=== PATIENT | male | born 1960 | race Caucasian/White ===

== ENCOUNTER 2022-07-17 21:13 | Emergency (ER) | payer OTHER ==
[~2022-07-17] VITALS: Ht 162.6 cm; Wt 61.7 kg
[2022-07-17 22:00] VITALS: BP 154/98
[2022-07-18] MEDS ORDERED: HYDROcodone/APAP 5/325 MG 1 TAB TAB PO ONE (00:20)
--- NOTE | 2022-07-18 00:22 | NUR ---
Lay pennington in ED - 07/18/22 at 0048 by [id number] ER physician interviewing patient. Patient stated, "I have diabetes, but I don't take medicine for it. I drink alcohol, 7 beers per day." Patient stated pain in abdomen "02/05."
--- NOTE | 2022-07-18 00:22 | NUR ---
ER physician interviewing patient. Patient stated, "I have diabetes, but I don't take medicine for it. I drink alcohol, 7 beers per day." Patient stated pain in abdomen "06/07."
[2022-07-18 00:40] LABS: BASOPHILS % (AUTO) 0.7 % (0.0-2.0); EOSINOPHILS # (AUTO) 0.1 K/uL (0-0.4); EOSINOPHILS % (AUTO) 1.7 % (0.0-4.0); HEMATOCRIT 30.3 % (36-52); HEMOGLOBIN 10.7 g/dL (12.0-18.0); LYMPHOCYTES # (AUTO) 0.7 K/uL (2.0-11.5); LYMPHOCYTES % (AUTO) 12.8 % (20.5-51.1); MEAN CORPUSCULAR HEMOGLOBIN 34 pg (27-31); MEAN CORPUSCULAR HGB CONC 35 g/dL (33-37); MEAN CORPUSCULAR VOLUME 96.2 fL (80-94); MONOCYTES # (AUTO) 0.4 K/uL (0.8-1.0); MONOCYTES % (AUTO) 7.6 % (1.7-9.3); NEUTROPHILS # (AUTO) 4.2 K/uL (1.8-7.7); NEUTROPHILS % (AUTO) 77.2 % (42.2-75.2); PLATELET COUNT (AUTO) 217 K/uL (140-450); RED BLOOD CELL COUNT(AUTO) 3.15 MIL/uL (4.20-6.10); RED CELL DISTRIBUTION WIDTH 13.1 % (11.6-13.7); WHITE BLOOD COUNT (AUTO) 5.5 K/uL (4.8-10.8)
[2022-07-18 00:53] LABS: ALBUMIN 3.4 g/dL (3.4-5.0); CARBON DIOXIDE 26.8 mmol/L (21-32); POTASSIUM 3.8 mmol/L (3.5-5.1); TOTAL BILIRUBIN 0.7 mg/dL (0.0-1.0)
--- NOTE | 2022-07-18 01:50 | NUR ---
[facility] ([facility]) # [phone] REQUESTING ANY UPDATES IF ANY STATUS CHANGES
[2022-07-18] MEDS ORDERED: MAG-27 PO (02:32)
[2022-07-18 03:03] VITALS: BP 111/70
== END 2022-07-18 02:52 | disposition home or self-care (01) ==
LOC: MED 21:13
DX: R10.13 Epigastric pain (principal); E11.9 Type 2 diabetes mellitus without complications; Z79.4 Long term (current) use of insulin; Z79.899 Other long term (current) drug therapy; Z72.89 Other problems related to lifestyle
CPT/HCPCS: 36415; 71045; 80053; 83690; 85025; 99284; Q0092